=== PATIENT | male | born 1965 | race Caucasian/White ===

== ENCOUNTER 2025-01-27 10:35 | Outpatient (CLI) | payer BC, SELFPAY ==
--- NOTE | ~2025-01-27 | PE_ITS ---
EXAMINATION: PET_PETPSMAST_PT DATE: 01/27/2025 13:07 INDICATION: Malignant neoplasm of prostate. TECHNIQUE: 4.838 mCi of Ga-68 gozetotide was administered intravenously. Low dose computed tomography (CT) images were acquired from the base of the brain to the proximal thighs for attenuation correction and anatomic localization. Automated exposure control was employed. Dose-length product (DLP) was 1303 mGy- cm. Positron emission tomography (PET) images were acquired in the same distribution. COMPARISON: None FINDINGS: Head/neck: There are no pathologically enlarged lymph nodes. Chest: There is no pneumonia or pleural effusion. The heart size is normal. There are coronary artery calcifications. No pericardial effusion. 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 Abdomen/pelvis/proximal thighs: The liver, gallbladder, spleen, pancreas, adrenal glands, and left kidney are normal. There is a 2.4 cm cyst in right kidney. There is no urolithiasis. The prostate is mildly enlarged. There is increased activity in the prostate in the left peripheral zone with maximum SUV of 9.0. There is a left inguinal hernia containing fat. There are no dilated loops of bowel. The appendix is normal. There are no pathologically enlarged lymph nodes. There is no free intraperitoneal fluid. There is no osseous malignancy. IMPRESSION: 1. Mildly enlarged prostate with increased activity on the left, consistent with primary malignancy. No evidence of metastatic disease. Reviewed, dictated and finalized at location E. IMPRESSION: 1. Mildly enlarged prostate with increased activity on the left, consistent wit h primary malignancy. No evidence of metastatic disease.
--- OUTSIDE RECORDS SUMMARY | 2025-01-27 11:42 | XMS_ITS | Encounter Summary ---
Author Organization [facility] Address [address] [place] [id number] Care Team Providers Care Electric Meter Inspector Name Role Phone VitalyhughUgo lindquist Neelima WATSON Primary Care Provider + Encounter Details Date Type Department Care Team (Late st Contact Info) Description 05/05/[address] [facility] [address] [place], [place] [phone] Juan J Pina MD [address] [place] [phone] Social History Tobacco Use Types Packs/Day Years Used Date Smoking Tobacco: Never Smokeless Tobacco: Never Alcohol Use Standard Drinks/Week Comments No 0 (1 standard drink = 0.6 oz pur e alcohol) AUDIT-C Answer Date Recorded Frequency of Alcohol Consumption Never 12/05/2018 Average Number of Drinks Not on file 019 Frequency of Binge Drinking Not on file 11/21 PHQ-2 Answer Date Recorded PHQ-2 Score - If the patient scores above 3, please move on to questions 3-9 0 02/10/2020 Sex and Gender Information Value Date Recorded Sex Assigned at Male 09/02/2024 7:29 AM CDT Legal Sex Male 1:58 PM CDT Gender Identity Male 09/02/2024 7:29 AM CDT Sexual Orientation Not on file Occupation Industry Job Start Date Job End Date Not on file Not on file Not on file Not on file COVID-19 Exposure Response Date Recorded In the last month, have you been in contact with someone who was confirmed or suspected to have Coronavirus / COVID-19? No / Unsure 04/29/2020 2:12 PM CELL REPAIRER documented as of this encounter Plan of Treatment Upcoming Encounters Date Type Department Care Team (Late st Contact Info) Description 04/06/2025 7:00 AM CELL REPAIRER Office Visit [facility] [id number] [place] [address] Ugo Jackson, [address] [place] [address] documented as of this encounter Results * PRE-SURGICAL/PRE-PROCEDURE CORONAVIRUS (COVID 19) (05/11/2020 7:57 AM CELL REPAIRER) CORONAVIRUS SARS COV 2 PCR (RESP) NOT DETECTED NOT DETECTED 05/12/2020 12:16 PM CELL REPAIRER [facility] Comment: A Not Detected (negative) test result for this test means that SARS- CoV-2 RNA was not present in the specimen above the limit of detection. A negative result does not rule out the possibility of COVID-19 and should not be used as the sole basis for treatment or patient management decisions. If COVID-19 is still suspected, based on exposure history together with other clinical findings, re-testing should be considered in consultation with public health authorities. Laboratory test results should always be considered in the context of clinical observations and epidemiological data in making a final diagnosis and patient management decisions. Please review the Fact Sheets and FDA authorized labeling available for health care providers and patients using the following websites: [email or web address]/fact-[email or web address]/[email or web address]-[email or web address]/[email or web address]/ fact-sheet2 This test has been authorized by the FDA under an Emergency Use Authorization (EUA) for use by authorized laboratories. Due to the current public health emergency, [facility] is receiving a high volume of samples from a wide variety of swabs and media for COVID-19 testing. In order to serve patients during this public health crisis, samples from appropriate clinical sources are being tested. Negative test results derived from specimens received in non-commercially manufactured viral collection and transport media, or in media and sample collection kits not yet authorized by FDA for COVID-19 testing should be cautiously evaluated and the patient potentially subjected to extra precautions such as additional clinical monitoring, including collection of an additional specimen. Methodology: Nucleic Acid Amplification Test (NAAT) includes RT-PCR or TMA Additional information about COVID-19 can be found at the [facility] website: www.[employer]/Covid19. Test performed at [facility] [place] [address] [place] [address] Director: CRISPIN NELSON DO,MPH FIRST TEST NO 05/11/2020 7:[address] [facility] EMPLOYED IN HEALTHCARE NO 05/11/2020 7:[address] [facility] SYMPTOMATIC DEFINED BY CDC NO 05/11/2020 7:[address] [facility] DATE OF SYMPTOM ONSET UNKNOWN 05/11/2020 8:[address] [facility] HOSPITALIZATION STATUS NO 05/11/2020 7:[address] [facility] PATIENT IN ICU NO 05/11/2020 7:[address] [facility] RESIDENT OF [facility] C[facility] NO 05/11/2020 7:[address] [facility] NO 05/11/2020 8:[address] [facility] PATIENT'S RACE WHITE OR 05/11/2020 7:[address] [facility] ETHNICITY NONHISPANIC 05/11/2020 7:[address] [facility] SOURCE (QST) NASOPHARYNGEAL SWAB 05/11/2020 7:[address] [facility] NASOPHARYNGEAL SWAB / Unknown 05/11/2020 7:57 AM CELL REPAIRER Juan J Pina MD MICROBIOLOGY - GENERAL ORDERABLE S Final Result [facility] () [facility] [address] [place] [address], [facility] [address] [place] [address], documented in this encounter Visit Diagnoses Diagnosis Preop testing- Primary Preoperative examination, unspecified documented in this encounter Additional Health Concerns Infection Onset Date Last Indicated Resolved Time COVID-19 Rule Out 05/11/2020 05/11/2020 05/12/2020 12:16 PM CELL REPAIRER Assessment Noted Time PHQ-9 Depression Total Score: 0 02/10/20 7:20 AM CDT documented as of this encounter Care Teams Electric Meter Inspector Relationship Specialty Start Date End Date Ugo Jackson DO [address] [place] [id number] PCP - General FAMILY PRACTICE 12/05/18 documented as of this encounter
--- OUTSIDE RECORDS SUMMARY | 2025-01-27 11:42 | XMS_ITS | Clinical Summary ---
Author Organization [facility] Address [address] [place] [id number] Care Team Providers Care Collator Operator Name Role Phone Ugo Jackson DO Primary Care Provider + Allergies No known active allergies Medications amLODIPine (NORVASC) 10 MG tabletIndications: Type 2 diabetes mellitus with microalbuminuria, without long-term current use of insulin ([facility] HHS/HCC) Take 1 tablet (10 mg total) by mouth daily. 90 tablet 5 Active atorvastatin (LIPITOR) 20 MG tabletIndications: Mixed hyperlipidemia Take 1 tablet (20 mg total) by mouth daily. 90 tablet 5 Active lisinopril (PRINIVIL) 40 MG tabletIndications: Type 2 diabetes mellitus with microalbuminuria, without long-term current use of insulin ([facility] HHS/[facility]),Essential hypertension Take 1 tablet (40 mg total) by mouth daily. 90 tablet 5 Active metFORMIN (GLUCOPHAGE) 500 MG tabletIndications: Type 2 diabetes mellitus with microalbuminuria, without long-term current use of insulin ([facility] HHS/HCC) Take 1 tablet (500 mg total) by mouth 2 (two) times daily with meals. 180 tablet 5 Active JARDIANCE 25 MG tabletIndications: Type 2 diabetes mellitus with microalbuminuria, without long-term current use of insulin ([facility] HHS/HCC) TAKE 1 TABLET(25 MG) BY MOUTH DAILY 90 tablet 5 Active semaglutide (OZEMPIC) 1 mg/dose injection (PEN)Indications:D iabetes Mellitus Inject 1 mg into the skin once a week. Indications: Diabetes 3 mL 2 5 Active semaglutide (OZEMPIC, 0.25 OR 0.5 MG/DOSE,) 2 MG/3ML injection (PEN)Indications:T ype 2 diabetes mellitus with microalbuminuria, without long-term current use of insulin ([facility]) INJECT 0.25MG UNDER THE SKIN EVERY 7 DAYS. INCREASE TO 0.5MG WEEKLY AFTER 1 MONTH OF THERAPY. 3 mL 1 5 025 Discontin ued(Reord er) semaglutide (OZEMPIC, 0.25 OR 0.5 MG/DOSE,) 2 MG/3ML injection (PEN)Indications:D iabetes Mellitus Inject 0.5 mg into the skin every 7 days. Indications: Diabetes 3 mL 1 5 025 Discontin ued(Dose adjustmen t) Active Problems Problem Noted Date Diagnosed Date History of adenomatous polyp of colon 11/13/2023 Sensorineural hearing loss (SNHL) of both ears 1 06/20/2020 Positive colorectal cancer screening using Colog uard test 04/30/2020 Overview (04/30/2020): Added automatically from request for surgery [id number] Mixed hyperlipidemia 12/16/2018 Vitamin D deficiency 12/16/2018 BMI 38.0-38.9,adult 12/16/2018 Essential hypertension 12/08/2018 Type 2 diabetes mellitus wit h microalbuminuria, without long-term current use of insulin ([facility]) 12/08/2018 Resolved Problems Problem Noted Date Diagnosed Date Resolved Date Screening for colon cancer 11/13/2023 0 11/19/2023 Screening for colon cancer 11/13/2023 0 12/17/2023 BMI 37.0-37.9, adult 12/08/2018 019 Encounters Date Type Department Care Team Description 01/13/2025 Scan [facility] INFO SRVCS Scanned, [facility] 01/06/2025 7:00 AM CDT Office Visit [facility] Family & Internal Medicine [address] [address] Ugo Jackson, DO Hypertension (Follow up on HTN. ); Diabetes (8.7 A1C 1 month ago. ) 01/06/2025 Travel 12/05/2024 8:00 AM CDT Laboratory Only [facility] Internal [address] [address] Ugo Jackson DO 12/05/2024 Travel 11/06/2024 Scan HEALTH INFO SRVCS Scanned, [facility] 11/03/2024 7:00 AM CDT Office Visit [facility] Internal [address] [address] Ugo Jackson, Diabetes 11/03/2024 Results Follow-Up [address] [address] Ugo Jackson, HEMOGLOBIN, GLYCOSYLATED, HEMOGLOBIN, GLYCOSYLATED, LIPID PANEL, Additional followed-up results: 5 11/03/2024 Travel from Last 3 Months Immunizations Immunization Administration Dates Next Due PFIZER COVID-19 (ORIGINAL FO RMULATION, PURPLE CAP) mRNA, LNP-S, PF, 30 MCG/0.3 ML DOSE 04/09/2020 Pneumococcal (Pneumovax 23) 02/10/2020 Pneumococcal (Prevnar 20) 12/28/2021 Tdap (Historical Only-select from magnify glass) 02/10/2020 Family History Medical History Relation Comments Diabetes Brother due to surgery Cancer Mother Diabetes Mother Heart Disease Mother CHF Hypertension Mother Relation Status Comments Brother Alive Mother Social History Tobacco Use Types Packs/Day Years Used Date Smoking Tobacco: Never Smokeless Tobacco: Never Tobacco Cessation:Counseling Given: Yes Alcohol Use Standard Drinks/Week Comments Never 0 (1 standard drink = 0.6 oz pur e alcohol) AUDIT-C Answer Date Recorded Frequency of Alcohol Consumption Never 12/05/2018 Average Number of Drinks Not on file 019 Frequency of Binge Drinking Not on file 11/21 PHQ-2 Answer Date Recorded Patient Health Questionnaire-2 Score 0 09/02/2024 Sex and Gender Information Value Date Recorded Sex Assigned at Male 09/02/2024 7:29 AM CDT Legal Sex Male 1:58 PM CDT Gender Identity Male 09/02/2024 7:29 AM CDT Sexual Orientation Not on file Occupation Industry Job Start Date Job End Date Not on file Not on file Not on file Not on file Last Filed Vital Signs Vital Sign Reading Time Taken Comments Blood Pressure 135/80 01/06/2025 7:31 AM CDT Pulse 87 01/06/2025 7:13 AM CDT Temperature 37 C (98.6 F) 01/06/2025 7:13 AM CDT Respiratory Rate 16 01/06/2025 7:13 AM CDT Oxygen Saturation 98% 01/06/2025 7:13 AM CDT Inhaled Oxygen Concentration - - Weight 106.5 kg (234 lb 11.2 oz) 01/06/2025 7:13 AM CDT Height 175.3 cm (5' 9) 01/06/2025 7:13 AM CDT Body Mass Index 34.66 01/06/2025 7:13 AM CDT Plan of Treatment Upcoming Encounters Date Type Department Care Team (Late st Contact Info) Description 04/06/2025 7:00 AM ADMISSIONS CONSULTANT Office Visit [facility] Family & Internal Medicine [id number] [place] [phone] Ugo Jackson DO [address] [place] [address] Health Maintenance Due Date Last Done Comments Annual Physical 1968 Diabetes: Retinopathy Eye Exam 02/05/2025 11/12/2023 Postponed from 11/11/2024 (Future Appointment) Hemoglobin A1C 06/07/2025 12/05/2024, 10/21, 09/02/2024, Additional history exists RSV Immunization or 60+ Years (1 - Risk 60-74 years 1-dose series) 09/02/2025 Postponed fro m 2024 (Patient Refused) Zoster Vaccines (1 of 2) 11/03/2025 Pos tponed from 2014 (Patient Refused) Kidney Health Evaluation 12/05/2025 12/05/2024 Lipid Panel 12/05/2025 12/05/2024, 08/0 04/2023, 02/21/2022, Additional history exists COVID-19 Vaccine ( season) 2026 01/06/2022, 02/04/2021, 04/30/2020, Additional history exists Postponed from 12/22/2024 (Future Appointment) Colorectal Cancer Screening Colonoscopy (10 Years) 01/17/2029 01/18/2024, 05/14/2020 DTaP, Tdap and Td Vaccines (2 - Td or Tdap) 02/09/2030 02/10/2020 Colorectal Cancer Screening FIT-DNA (3 Years) Discontinued 03/25/2020, 03/25/2020 Pneumococcal Vaccine: 50+ Years Completed 12/28/2021, 02/10/2020 Hepatitis C Completed 02/21/2022 PHQ-2 (Physician [place]) Completed 09/02/2024 Meningococcal B Vaccine Aged Out No l onger eligible based on patient's age to complete this topic Meningococcal Vaccine Aged Out No brendan jared eligible based on patient's age to complete this topic RSV Immunizations Under 20 Months Aged Out No longer eligible based on patient's age to complete this topic Procedures Procedure Name Priority Date/Time Associated Diagnosis Comments COLLECTION VENOUS BLOOD VENIPUNCTURE Routine 12/05/2024 7:59 AM CDT Uncontrolled type 2 diabetes mellitus with hyperglycemia ([facility]) Screening for lipid disorders Screening for endocrine, metabolic and immunity disorder Screening for prostate cancer Annual physical exam Vitamin D deficiency VITAMIN D, 25 OH Routine 12/05/2024 7:59 AM CDT Vitamin D deficiency Screening for lipid disorders Screening for endocrine, metabolic and immunity disorder Screening for prostate cancer Annual physical exam ALBUMIN URINE RANDOM W/CREATININE Routine 12/05/2024 7:59 AM CDT Screening for lipid disorders Screening for endocrine, metabolic and immunity disorder Screening for prostate cancer Annual physical exam CBC W/DIFF AUTOMATED Routine 12/05/2024 7:59 AM CDT Screening for lipid disorders Screening for endocrine, metabolic and immunity disorder Screening for prostate cancer Annual physical exam COMPREHENSIVE METABOLIC PANEL Routine 12/05/2024 7:59 AM CDT Screening for lipid disorders Screening for endocrine, metabolic and immunity disorder Screening for prostate cancer Annual physical exam TSH W/REFLEX Routine 12/05/2024 7:59 AM CDT Screening for lipid disorders Screening for endocrine, metabolic and immunity disorder Screening for prostate cancer Annual physical exam LIPID PANEL Routine 12/05/2024 7:59 AM CDT Screening for lipid disorders Screening for endocrine, metabolic and immunity disorder Screening for prostate cancer Annual physical exam HEMOGLOBIN, GLYCOSYLATED Routine 12/05/2024 7:59 AM CDT Uncontrolled type 2 diabetes mellitus with hyperglycemia (CMS/HCC HHS/HCC) Screening for lipid disorders Screening for endocrine, metabolic and immunity disorder Screening for prostate cancer Annual physical exam COLLECT.CAPILLARY (FNGR,HEEL,EAR) Routine 11/03/2024 7:01 AM CDT Uncontrolled type 2 diabetes mellitus with hyperglycemia HEMOGLOBIN, GLYCOSYLATED Routine 11/03/2024 Uncontrolled type 2 diabetes mellitus with hyperglycemia (CMS/HCC HHS/HCC) DIABETIC RETINOPATHY EXAM (NEGATIVE)(SCAN ORDER) Routine 11/12/2023 HEPATITIS C ANTIBODY Routine 02/21/2022 7:24 AM CDT Need for hepatitis C screening test COLOGUARD (SCAN ORDER) Routine 03/25/2020 from Last 3 Months or Most Recently Relevant to Health Maintenance Results * TSH W/REFLEX (12/05/2024 7:59 AM CDT) TSH 0.897 0.358 - 3.740 uIU/ML 12/05/2024 4:14 PM CDT [facility] 12/05/2024 7:59 AM CDT Ugo Jackson DO LABORATORY Final Re sult [facility] [address] [place] [address], * (ABNORMAL) HEMOGLOBIN, GLYCOSYLATED (12/05/2024 7:59 AM CDT) Only the most recent of2 resultswithin the time period is included. HGB A1C 8.7(H) 4.5 - 6.2 % 12/05/2024 5:25 PM CDT [facility] ESTIMATED AVG GLUCOSE 203(H) 74 - 106 MG/DL 12/05/2024 5:25 PM CDT [facility] 12/05/2024 7:59 AM CDT Ugo Jackson DO LABORATORY Final Re sult Performing Organization Address [facility] de Phone Number [address] [address], [place] [phone] * (ABNORMAL) ALBUMIN URINE RANDOM W/CREATININE (12/05/2024 7:59 AM CDT) MICROALBUMIN (U) 34.3(H) <20 MG/L 12/06/19 25 5:34 PM CDT [facility] CREATININE RANDOM (U) 83.6 MG/DL 12/05/2024 5:34 PM CDT [facility] ALBUMIN/CREAT RATIO 41.0(H) <30 MG/G 12/05/2024 5:34 PM CDT [facility] URINE SPECIMEN / Unknown 12/05/2024 7:59 AM CDT Ugo Jackson DO URINE ORDERABLES Final R esult Performing Organization Address [facility] Co de Phone Number [address] [address], [place] [phone] * (ABNORMAL) COMPREHENSIVE METABOLIC PANEL (12/05/2024 7:59 AM CDT) [facility] SODIUM S/P/B 144 136 - 145 MMOL/L 12/05/2024 4:14 PM CDT [facility] POTASSIUM S/P/B 4.3 3.5 - 5.1 MMOL/L 12/05/2024 4:14 PM CDT [facility] CHLORIDE S/P/B 107 98 - 107 MMOL/L 12/05/2024 4:14 PM CDT [facility] CO2 24.8 21 - 32 MMOL/L 12/05/2024 4:14 PM CDT [facility] GLUCOSE 181(H) 70 - 99 MG/DL 12/05/2024 4:14 PM CDT [facility] BUN 19(H) 7 - 18 MG/DL 12/05/2024 4:14 PM CDT [facility] CREATININE S/P/B 1.13 0.70 - 1.30 MG/DL 12/05/2024 4:14 PM CDT [facility] CALCIUM S/P/B 9.3 8.4 - 10.5 MG/DL 12/05/2024 4:14 PM CDT [facility] BILIRUBIN TOTAL S/P/B 0.8 0.2 - 1.0 MG/DL 12/05/2024 4:14 PM CDT [facility] ALKALINE PHOSPHATASE S/P/B 82 45 - 115 U/L 12/05/2024 4:14 PM CDT [facility] AST 19 15 - 37 U/L 12/05/2024 4:14 PM CDT [facility] ALT 45 16 - 63 U/L 12/05/2024 4:14 PM CDT [facility] TOTAL PROTEIN S/P/B 7.1 6.4 - 8.2 G/DL 12/05/2024 4:14 PM CDT [facility] ALBUMIN S/P/B 4.0 3.4 - 5.0 G/DL 12/05/2024 4:14 PM CDT [facility] ANION GAP 12.2 5 - 15 MMOL/L 12/05/2024 4:14 PM CDT [facility] Comment:REFERENCE RANGE NOT ESTABLISHED OSMOLALITY (CALC) 305 MOSM/KG 025 4:14 PM CDT [facility] Comment:REFERENCE RANGE NOT ESTABLISHED GFR ESTIMATE 74(L) >90 ML/MIN/1. 73 M2 12/05/2024 4:14 PM CDT [facility] GFR NOTES GFR REFERENCE S: 12/05/2024 4:14 PM CDT [facility] Comment: THE ESTIMATED GFR IS CALCULATED USING THE 2020 CKD-EPI EQUATION. THE FOLLOWING CATEGORIES FOR GRADING RENAL FUNCTION ARE RECOMMENDED BY THE INTERNATIONAL SOCIETY OF NEPHROLOGY (KDIGO 2012 CLINICAL PRACTICE GUIDELINE). G1,NORMAL OR HIGH: >89 ml/min/1.73 m2 G2,MILDLY DECREASED: 60-89 ml/min/1.73 m2 G3A,MILDLY TO MODERATELY DECREASED: 45-59 ml/min/1.73 m2 G3B,MODERATELY TO SEVERELY DECREASED: 30-44 ml/min/1.73 m2 G4,SEVERELY DECREASED: 15-29 ml/min/1.73 m2 G5,KIDNEY FAILURE: <15 ml/min/1.73 m2 12/05/2024 7:59 AM CDT us Ugo Jackson DO LABORATORY Final Re sult [facility] [address] [place] [address], * (ABNORMAL) LIPID PANEL (12/05/2024 7:59 AM CDT) CHOLESTEROL 145 <200 MG/DL 12/05/2024 4:14 PM CDT [facility] TRIGLYCERIDES 167(H) <150 MG/DL 12/05/2024 4:14 PM CDT [facility] HDL 42 >40 MG/DL 12/05/2024 4:14 PM CDT [facility] LDL-C 70 <100 MG/DL 12/05/2024 4:14 PM CDT [facility] VLDL CALCULATION 33(H) 5 - 28 MG/DL 12/05/2024 4:14 PM CDT [facility] CHOL/HDL RATIO 3.5 0.0 - 4.0 12/05/2024 4:14 PM CDT [facility] LDL/HDL 1.7 0.41 - 2.13 12/05/2024 4:14 PM CDT [facility] NON HDL CHOLESTEROL 103 <140 MG/DL 12/05/2024 4:14 PM CDT [facility] 12/05/2024 7:59 AM CDT Ugo Jackson DO LABORATORY Final Re sult [facility] [address] [place] [address], * (ABNORMAL) CBC W/DIFF AUTOMATED (12/05/2024 7:59 AM CDT) WBC 8.38 4.00 - 10.80 x10'3/uL 12/05/2024 3:52 PM CDT [facility] RBC 5.49 4.50 - 6.10 x10'6/uL 12/05/2024 3:52 PM CDT [facility] HGB 16.2 13.0 - 18.0 G/DL 12/05/2024 3:52 PM CDT [facility] HCT 47.0 37.0 - 52.0 % 12/05/2024 3:52 PM CDT [facility] MCV 85.6 78.0 - 100.0 FL 12/05/2024 3:52 PM CDT [facility] MCH 29.5 27.0 - 31.0 PG 12/05/2024 3:52 PM CDT [facility] MCHC 34.5 33.0 - 36.0 G/DL 12/05/2024 3:52 PM CDT [facility] RDW 13.9 11.5 - 14.5 % 12/05/2024 3:52 PM CDT [facility] PLT 147(L) 150 - 350 x10'3/uL 12/05/2024 3:52 PM CDT [facility] MPV 12.6(H) 7.4 - 10.4 FL 12/05/2024 3:52 PM CDT [facility] DIFFERENTIAL TYPE AUTOMATED DIFFERENTIAL 12/05/2024 3:52 PM CDT [facility] NEUTROPHILS % 65.6 % 12/05/2024 3:52 PM CDT [facility] LYMPHOCYTES % 26.0 % 12/05/2024 3:52 PM CDT [facility] MONOCYTES % 6.2 % 12/05/2024 3:52 PM CDT [facility] EOSINOPHILS % 1.6 % 12/05/2024 3:52 PM CDT [facility] BASOPHILS % 0.4 % 12/05/2024 3:52 PM CDT [facility] IMMATURE GRANS % 0.2 % 12/05/2024 3:52 PM CDT [facility] ABS. NEUTROPHILS 5.50 1.60 - 8.30 x10'3/uL 12/05/2024 3:52 PM CDT [facility] ABS. LYMPHOCYTES 2.18 0.80 - 4.70 x10'3/uL 12/05/2024 3:52 PM CDT [facility] ABS. MONOCYTES 0.52 0.00 - 1.50 x10'3/uL 12/05/2024 3:52 PM CDT [facility] ABS. EOSINOPHILS 0.13 0.00 - 0.40 x10'3/uL 12/05/2024 3:52 PM CDT [facility] ABS. BASOPHILS 0.03 0.00 - 0.20 x10'3/uL 12/05/2024 3:52 PM CDT [facility] ABS. IMMATURE GRANULOCYTES 0.02 0.00 - 0.03 x10'3/uL 12/05/2024 3:52 PM CDT [facility] 12/05/2024 7:59 AM CDT Ugo Jackson DO LABORATORY Final Re sult Performing Organization Address [facility] Co de Phone Number [facility] [address] [place] [address], * VITAMIN D, 25 OH (12/05/2024 7:59 AM CDT) VITAMIN D 25 HYDROXY TOTAL S/P/B 35.6 30 - 100 NG/ML 12/05/2024 4:14 PM CDT [facility] Comment: DEFICIENT <20 INSUFFICIENT 20-30 SUFFICIENT 30-100 12/05/2024 7:59 AM CDT Ugo Jackson DO LABORATORY Final Re sult Performing Organization Address [facility]/ZIP Co de Phone Number [facility] [address] [place] [address], [place] [phone] * DIABETIC RETINOPATHY EXAM (NEGATIVE) (11/12/2023) [facility] Scanned SCANNING Final Resu lt Performing Organization Address City/[facility]/ZIP Co de Phone Number [facility] ONBASE * HEPATITIS C AB ([facility] ONLY) (02/21/2022 7:24 AM CDT) HEPATITIS C AB <0.1 0.0 - 0.9 s/co ratio [facility] 1 Comment: Negative: < 0.8 Indeterminate: 0.8 - 0.9 Positive: > 0.9 HCV antibody alone does not differentiate between previous resolved infection and active infection. The CDC and current clinical guidelines recommend that a positive HCV antibody result be followed up with an HCV RNA test to support the diagnosis of acute HCV infection. [facility] offers Hepatitis C Virus (HCV) RNA, Diagnosis, MEDARDO (573985) and Hepatitis C Virus (HCV) Antibody with reflex to Quantitative Real-time PCR ([id number]). 02/21/2022 7:24 AM CDT 02/21/2022 [facility]ative [facility] 02/22/2022 9:11 AM CDT Performed at: - [address] [id number] Facilities Maintenance Engineer: Tony Balderrama PhD, Phone: [phone] us Ugo Jackson DO LABORATORY Final Re sult [facility] [address] [place] [address] [facility] 1 * COLOGUARD (SCAN) (03/25/2020) COLOGUARD POSITIVE [facility] Stool specimen (specimen) 03/25/2020 us Documents Scanned SCANNING Final Result [facility] from Last 3 Months or Most Recently Relevant to Health Maintenance Insurance [facility] Care Teams Collator Operator Relationship Specialty Start Date End Date Ugo Jackson DO [address] [place], [place] [id number] PCP - General FAMILY PRACTICE 12/05/18
--- OUTSIDE RECORDS SUMMARY | 2025-01-27 11:42 | XMS_ITS | Encounter Summary ---
Author Organization [facility] Address [address] [place] [address] Care Team Providers Care Rock Cutter Name Role Phone Ugo Jackson DO Primary Care Provider + Encounter Details Date Type Department Care Team (Late Contact Info) Description 12/20/2018 OluKait Message Enc [facility] Family & Internal [facility] [address] [place] [address] Ugo Jackson DO [address] [place], [place] [phone] Follow Up/Update Social History Tobacco Use Types Packs/Day Years Used Date Smoking Tobacco: Never Smokeless Tobacco: Never Alcohol Use Standard Drinks/Week Comments No 0 (1 standard drink = 0.6 oz pur e alcohol) AUDIT-C Answer Date Recorded Frequency of Alcohol Consumption Never 12/05/2018 Average Number of Drinks Not on file 019 Frequency of Binge Drinking Not on file 11/21 Sex and Gender Information Value Date Recorded Sex Assigned at Male 09/02/2024 7:29 AM CDT Legal Sex Male 1:58 PM CDT Gender Identity Male 09/02/2024 7:29 AM CDT Sexual Orientation Not on file Occupation Industry Job Start Date Job End Date Not on file Not on file Not on file Not on file documented as of this encounter Plan of Treatment Upcoming Encounters Date Type Department Care Team (Late Contact Info) Description 04/06/2025 7:00 AM AURICULAR DETOXIFICATION SPECIALIST Office Visit [facility] Family & Internal Medicine [facility] [address] [place] [address] Ugo Jackson DO [address] [place] [address] documented as of this encounter Visit Diagnoses Not on filedocumented in this encounter Additional Health Concerns Infection Onset Date Last Indicated Resolved Time COVID-19 Rule Out 05/11/2020 05/11/2020 05/12/2020 12:16 PM AURICULAR DETOXIFICATION SPECIALIST Assessment Noted Time PHQ-9 Depression Total Score: 1 12/06/19 10:06 AM CDT documented as of this encounter Care Teams Rock Cutter Relationship Specialty Start Date End Date Ugo Jackson DO [address] [place] [address] PCP - General FAMILY PRACTICE 12/05/18 documented as of this encounter
== END 2025-01-27 10:36 | disposition home or self-care (01) ==
PROVIDERS: PCP Student in an Organized Health Care Education/Training Program; Visit Provider Urology
DX: C61 Malignant neoplasm of prostate (principal); N40.0 Benign prostatic hyperplasia without lower urinary tract symptoms
CPT/HCPCS: 78815; A9596